=== PATIENT | male | born 1940 ===

== ENCOUNTER 2024-08-22 17:49 | Observation (INO) | payer MEDICARE ==
[2024-08-22 17:57] VITALS: TEMP 97.6
--- NOTE | 2024-08-22 18:16 | ED ---
General Adult HPI - General Chief complaint: Recheck/Abnormal Lab/Rx Stated complaint: High BP Time Seen by Provider: 08/22/24 17:59 Source: patient, family, RN notes reviewed Mode of arrival: ambulatory Limitations: no limitations - History of Present Illness Initial comments: This is an 83-year-old male with history of ND in 2016 and 2 stents presenting with children complaining of elevated blood pressure and left arm pain (6 out of 10) x 2 days. Patient states pain is constant and was worse yesterday. Patient also endorses shortness of breath, sweating, pallor. Patient states symptoms were similar when he had his previous AMI. Patient endorses use of antihypertensive medication but has been having systolic blood pressures in the 200s since yesterday when they are normally in the 120s to 130s. Patient's adult children state patient was very active yesterday and today playing with grandchildren. Patient endorses daily use of ASA 81 but otherwise denies antiplatelet or anticoagulant use. Patient denies fever, chills, dizziness, fatigue, abdominal pain, N/V/D. MD Complaint: Elevated blood pressure, left arm pain Onset/Timin -: days(s) Severity scale (1-10): 6 Consistency: constant Associated Symptoms: other (Shortness of breath, sweating, pallor) Treatments Prior to Arrival: Aspirin (ASA 81) - Related Data Home Medications Medication Instructions Recorded Confirmed Albuterol Inhaler [Ventolin Hfa 2 puff INHALATION RT-Q4H PRN 08/22/24 08/22/24 Inhaler] Aspirin EC [Ecotrin Low Dose] 81 mg PO DAILY 08/22/24 08/22/24 Carbidopa-Levodopa 25-100 mg 2 tab PO QID 08/22/24 08/22/24 [Sinemet 25-100] Cholecalciferol [Vitamin D3 (125 125 mcg PO DAILY 08/22/24 08/22/24 Mcg = 5000 Iu)] Latanoprost [Latanoprost 0.005%] 1 drop RIGHT EYE HS 08/22/24 08/22/24 Multivitamins, Thera [Multivitamin 1 tab PO DAILY 08/22/24 08/22/24 (formulary)] Nitroglycerin Sl Tabs [Nitrostat] 0.4 mg SUBLINGUAL Q5M PRN 08/22/24 08/22/24 Rosuvastatin [Crestor] 20 mg PO HS 08/22/24 08/22/24 lisinopriL [Zestril] 10 mg PO HS 08/22/24 08/22/24 Allergies Allergy/AdvReac Type Severity Reaction Status Date / Time latex AdvReac Rash/Hives Verified 08/22/24 18:28 Review of Systems ROS Statement: Those systems with pertinent positive or pertinent negative responses have been documented in the HPI. ROS Other: All systems not noted in ROS Statement are negative. Past Medical History Past Medical History: Hypertension, Myocardial Infarction ([place]) Additional Past Medical History / Comment(s): Parkinson Additional Past Surgical History / Comment(s): Hemorrhoids 1982, Vricose Veins 1983, ganglion cyst Left wrist 1984, cataract 2011, radiation seed implants 2011, cataracts 2013, heart stent implants x2 2016 Smoking Status: Never smoker Past Alcohol Use History: None Reported Past Drug Use History: None Reported General Exam - General Exam Comments Initial Comments: Patient sitting comfortably in wheelchair without signs of acute distress. Limitations: no limitations General appearance: alert, in no apparent distress Head exam: Present: atraumatic, normocephalic, normal inspection Eye exam: Present: normal appearance, PERRL, EOMI. Absent: scleral icterus, conjunctival injection, periorbital swelling ENT exam: Present: normal exam, mucous membranes moist Neck exam: Present: normal inspection. Absent: tenderness, meningismus, lymphadenopathy Respiratory exam: Present: normal lung sounds bilaterally. Absent: respiratory distress, wheezes, rales, rhonchi, stridor Cardiovascular Exam: Present: regular rate, normal rhythm, normal heart sounds. Absent: systolic murmur, diastolic murmur, rubs, gallop, clicks GI/Abdominal exam: Present: soft, normal bowel sounds. Absent: distended, tenderness, guarding, rebound, rigid Extremities exam: Present: normal inspection, full ROM, normal capillary refill. Absent: tenderness, pedal edema, joint swelling, calf tenderness Back exam: Present: normal inspection Neurological exam: Present: alert, oriented X3, CN II-XII intact Psychiatric exam: Present: normal affect, normal mood Skin exam: Present: warm, dry, intact, normal color. Absent: rash Course Vital Signs 08/22/24 08/22/24 17:50 18:39 Temperature 97.6 F Pulse Rate 88 79 Respiratory 18 20 Rate Blood Pressure 189/93 161/101 O2 Sat by Pulse 98 96 Oximetry Medical Decision Making - Medical Decision Making Was pt. sent in by a medical professional or institution ([facility], [facility], urgent care, hospital, or [facility]...) When possible be specific @ -No Did you speak to anyone other than the patient for history (EMS, parent, family, police, friend...)? What history was obtained from this source @ -No Did you review nursing and triage notes (agree or disagree)? Why? @ -I reviewed and agree with nursing and triage notes Were old charts reviewed (outside hosp., previous admission, EMS record, old EKG, old radiological studies, urgent care reports/EKG's, [facility] records)? Report findings @ -No old charts were reviewed Differential Diagnosis (chest pain, altered mental status, abdominal pain women, abdominal pain men, vaginal bleeding, weakness, fever, dyspnea, syncope, headache, dizziness, GI bleed, back pain, seizure, CVA, palpatations, mental health, musculoskeletal)? @ -Differential Chest Pain: Stable Angina, Unstable Angina, STEMI, NSTEMI Aortic Dissection, Pneumothorax, Musculoskeletal, Esophageal Spasm GERD, Cholecystitis, Pancreatitis, Zoster, this is not meant to be an all-inclusive list. EKG interpreted by me (3pts min.). @ -Sinus rhythm without ST changes or T wave inversion. Q wave noted in lead III likely indicating previous infarction. Ventricular rate 77 bpm, SUSIE 156 ms, QRS duration 90 ms, QTc 408 ms. X-rays interpreted by me (1pt min.). @ -Chest x-ray revealed no focal infiltrates, pulmonary edema or blunting of costophrenic angle. CT interpreted by me (1pt min.). @ -None done U/S interpreted by me (1pt. min.). @ -None done What testing was considered but not performed or refused? (CT, X-rays, U/S, labs)? Why? @ -None What meds were considered but not given or refused? Why? @ -Patient declined analgesic for pain control Did you discuss the management of the patient with other professionals (professionals i.e. [facility], [facility], lab, RT, psych nurse, social services designee, billiard table assembler, teacher, benefits officer, medical case worker)? Give summary @ -Contacted sound and notified them of patient history and condition. Physician agreed to patient admission into observation. Was smoking cessation discussed for >3mins.? @ -No Was critical care preformed (if so, how long)? @ -No Were there social determinants of health that impacted care today? How? (Ho melessness, low income, unemployed, alcoholism, drug addiction, transportation, low edu. Level, literacy, decrease access to med. care, long term, rehab)? @ -No Was there de-escalation of care discussed even if they declined (Discuss DNR or withdrawal of care, Hospice)? DNR status @ -No What co-morbidities impacted this encounter? (DM, HTN, Smoking, COPD, CAD, Cancer, CVA, ARF, Chemo, Hep., AIDS, mental health diagnosis, sleep apnea, morbid obesity)? @ -None Was patient admitted / discharged? Hospital course, mention meds given and route, prescriptions, significant lab abnormalities, going to OR and other pertinent info. @ -Admitted to observation. EKG showed no acute ST segment changes or T wave inversion. Q waves in lead III likely from previous ND noted. Troponin was negative. ASA 243 mg p.o. given-patient takes ASA 81 daily. Patient otherwise declined analgesics. Sounds notified of patient condition and history and will admit for further observation. Undiagnosed new problem with uncertain prognosis? @ -No Drug Therapy requiring intensive monitoring for toxicity (Heparin, Nitro, Insulin, Cardizem)? @ -No Were any procedures done? @ -No Diagnosis/symptom? @ -Stable angina Acute, or Chronic, or Acute on Chronic? @ -Acute Uncomplicated (without systemic symptoms) or Complicated (systemic symptoms)? @ -Complicated Side effects of treatment? @ -No Exacerbation, Progression, or Severe Exacerbation? @ -Exacerbation Poses a threat to life or bodily function? How? (Chest pain, USA, ND, pneumonia, PE, COPD, DKA, ARF, appy, cholecystitis, CVA, Diverticulitis, Homicidal, Suicidal, threat to staff... and all critical care pts) @ -Yes, chest pain - Lab Data Result diagrams: 08/22/24 18:33 08/22/24 18:33 Lab Results 08/22/24 08/22/24 08/22/24 Range/Units 18:33 18:33 18:33 WBC 7.3 (3.8-10.6) k/uL RBC 5.20 (4.30-5.90) m/uL Hgb 15.9 (13.0-17.5) gm/dL Hct 48.9 (39.0-53.0) % MCV 94.0 (80.0-100.0) fL MCH 30.6 (25.0-35.0) pg MCHC 32.5 (31.0-37.0) g/dL RDW 13.2 (11.5-15.5) % Plt Count 82 L (150-450) k/uL MPV 12.7 Neutrophils % 63 % Lymphocytes % 25 % Monocytes % 7 % Eosinophils % 4 % Basophils % 0 % Neutrophils # 4.6 (1.3-7.7) k/uL Lymphocytes # 1.8 (1.0-4.8) k/uL Monocytes # 0.5 (0-1.0) k/uL Eosinophils # 0.3 (0-0.7) k/uL Basophils # 0.0 (0-0.2) k/uL Manual Slide Review Performed Large Platelets Present RBC Morphology Normal PT 10.3 (10.0-12.5) sec INR 0.9 (<1.2) APTT 23.7 (22.0-30.0) sec Sodium 139 (137-145) mmol/L Potassium 3.9 (3.5-5.1) mmol/L Chloride 108 H (98-107) mmol/L Carbon Dioxide 25 (22-30) mmol/L Anion Gap 6 mmol/L BUN 14 (9-20) mg/dL Creatinine 0.71 (0.66-1.25) mg/dL Est GFR (CKD-EPI)AfAm >90 (>60 ml/min/1.73 sqM) Est GFR (CKD-EPI)NonAf 87 (>60 ml/min/1.73 sqM) Glucose 117 H (74-99) mg/dL Calcium 9.1 (8.4-10.2) mg/dL Magnesium 2.1 (1.6-2.3) mg/dL Total Bilirubin 0.9 (0.2-1.3) mg/dL AST 29 (17-59) U/L ALT 7 (4-49) U/L Alkaline Phosphatase 59 (38-126) U/L Troponin I (0.000-0.034) ng/mL Total Protein 6.7 (6.3-8.2) g/dL Albumin 4.3 (3.5-5.0) g/dL 08/22/24 Range/Units 18:33 WBC (3.8-10.6) k/uL RBC (4.30-5.90) m/uL Hgb (13.0-17.5) gm/dL Hct (39.0-53.0) % MCV (80.0-100.0) fL MCH (25.0-35.0) pg MCHC (31.0-37.0) g/dL RDW (11.5-15.5) % Plt Count (150-450) k/uL MPV Neutrophils % % Lymphocytes % % Monocytes % % Eosinophils % % Basophils % % Neutrophils # (1.3-7.7) k/uL Lymphocytes # (1.0-4.8) k/uL Monocytes # (0-1.0) k/uL Eosinophils # (0-0.7) k/uL Basophils # (0-0.2) k/uL Manual Slide Review Large Platelets RBC Morphology PT (10.0-12.5) sec INR (<1.2) APTT (22.0-30.0) sec Sodium (137-145) mmol/L Potassium (3.5-5.1) mmol/L Chloride (98-107) mmol/L Carbon Dioxide (22-30) mmol/L Anion Gap mmol/L BUN (9-20) mg/dL Creatinine (0.66-1.25) mg/dL Est GFR (CKD-EPI)AfAm (>60 ml/min/1.73 sqM) Est GFR (CKD-EPI)NonAf (>60 ml/min/1.73 sqM) Glucose (74-99) mg/dL Calcium (8.4-10.2) mg/dL Magnesium (1.6-2.3) mg/dL Total Bilirubin (0.2-1.3) mg/dL AST (17-59) U/L ALT (4-49) U/L Alkaline Phosphatase (38-126) U/L Troponin I 0.012 (0.000-0.034) ng/mL Total Protein (6.3-8.2) g/dL Albumin (3.5-5.0) g/dL Disposition Clinical Impression: Stable angina Disposition: ADMITTED IP TO THIS HOSP Condition: Good Is patient prescribed a controlled substance at d/c from ED?: No Referrals: Ijeoma Dodson MD [Primary Care Provider] - 1-2 days Time of Disposition: 19:18
--- NOTE | 2024-08-22 18:30 | XR ---
EXAMINATION TYPE: XR chest 2V DATE OF EXAM: 08/22/2024 6:24 PM COMPARISON: None CLINICAL INDICATION: Male, 83 years old with history of Chest Pain; [facility] TECHNIQUE: XR chest 2V Frontal and lateral views of the chest. FINDINGS: Lungs/Pleura: There is no evidence of pleural effusion, focal consolidation, or pneumothorax. Pulmonary vascularity: Unremarkable. Heart/mediastinum: Cardiomediastinal silhouette is unremarkable. Musculoskeletal: No acute osseous pathology. IMPRESSION: No acute cardiopulmonary disease/process. [facility], , 08/22/2024 6:28 PM
[2024-08-22] MEDS: ASPIRIN 81 MG PO STA (18:35)
[2024-08-22 18:53] LABS: ALT 7 U/L (4-49); African American GFR (CKD) >90 (>60 ml/min/1.73 sqM); Albumin 4.3 g/dL (3.5-5.0); Anion Gap 6 mmol/L; Blood Urea Nitrogen 14 mg/dL (9-20); Calcium 9.1 mg/dL (8.4-10.2); Carbon Dioxide 25 mmol/L (22-30); Chloride 108 mmol/L (98-107); Glucose 117 mg/dL (74-99); Non-African American GFR(CKD) 87 (>60 ml/min/1.73 sqM); Sodium 139 mmol/L (137-145); Total Bilirubin 0.9 mg/dL (0.2-1.3); Total Protein 6.7 g/dL (6.3-8.2)
[2024-08-22 18:55] LABS: Basophils % (A) 0 %; Eosinophils # (A) 0.3 k/uL (0-0.7); Eosinophils % (A) 4 %; HCT 48.9 % (39.0-53.0); HGB 15.9 gm/dL (13.0-17.5); INR 0.9 (<1.2); Lymphocytes # (A) 1.8 k/uL (1.0-4.8); Lymphocytes % (A) 25 %; MCH 30.6 pg (25.0-35.0); MCHC 32.5 g/dL (31.0-37.0); Mean Platelet Volume 12.7; Monocytes # (A) 0.5 k/uL (0-1.0); Monocytes % (A) 7 %; Neutrophils # (A) 4.6 k/uL (1.3-7.7); Neutrophils % (A) 63 %; Prothrombin Time 10.3 sec (10.0-12.5); RDW 13.2 % (11.5-15.5); WBC 7.3 k/uL (3.8-10.6)
[2024-08-22 18:56] LABS: Partial Thromboplastin Time 23.7 sec (22.0-30.0)
[2024-08-22 19:09] LABS: Platelet Count 82 k/uL (150-450)
[2024-08-22 19:10] LABS: AST 29 U/L (17-59); Alkaline Phosphatase 59 U/L (38-126); Magnesium 2.1 mg/dL (1.6-2.3); Potassium 3.9 mmol/L (3.5-5.1)
[2024-08-22 19:11] LABS: Large Platelets Present; RBC Morphology Normal
[2024-08-22] MEDS ORDERED: NALOXONE 0.4 MG/ML 1 ML VIAL IV PRN (19:21)
[2024-08-22] MEDS ORDERED: ALBUTEROL HFA INHALER INHALATION PRN (19:27)
[2024-08-22] MEDS ORDERED: NITROGLYCERIN SL TABS 0.4 MG TAB SUBLINGUAL PRN (19:27)
[2024-08-22] MEDS: lisinopriL 10 MG TAB PO SCH (20:40)
[2024-08-22] MEDS: LATANOPROST 0.005% OPHTH DROPS 2.5 ML BTL RIGHT EYE SCH (20:40)
[2024-08-22] MEDS: ATORVASTATIN 40 MG TAB PO SCH (20:40)
[2024-08-22] MEDS: CARBIDOPA-LEVODOPA 25-100 MG 1 EACH TAB PO SCH (22:57)
--- NOTE | 2024-08-22 23:25 | P.HPIM ---
History of Present Illness H&P Date: 08/22/24 Chief Complaint: "I had pressure in the chest and my arm. "I had pressure in the chest and my arm. The same symptoms I had when I had a heart attack." Srini is an 83 y o male patient with a history of heart attack and stenting 10 years ago. He presented with chest pressure and left arm pain. The current episode began yesterday with pain in the left forearm after cutting wood and playing with his [employer]. He had high blood pressure at home, measured at 200 systolic blood pressure. He noted feeling a bit dizzy at times but denies nausea, vomiting, heart racing, , he also experienced some slight shortness of breath with this episode. He has not taken any additional medications for his current symptoms. Lifestyle activities included running around with [employer] and yard work, which he usually does not do. No recent changes in medications or new activities apart from increased physical exertion are reported. No recent travel or hospital stay denies any history of blood clots History of myocardial infarction (heart attack) with stenting. 2. Hypertension, with a recent blood pressure reading of 200 at home. 3. Parkinson's disease. Differential diagnosis no history of asthma, diabetes, or strokes are noted. Srini lives independently and actively engages with his [employer]. He does not smoke or drink alcohol. He retired from a civil service career and describes his activity level as generally independent until the current issue ar ose. Review of systems General: No fever or chills. Pulmonary: Reports some shortness of breath. Ca rdiovascular: Pressure in the chest; no heart racing. Gastrointestinal: No nausea, vomiting, or diarrhea. Neurological: Reports occasional dizziness, no numbness or weakness reported. No issues with urinary or bowel functions noted. Vital signs: Blood pressure 176/90. Other vitals not documented. Cardiovascular examination normal with no murmurs noted. Respiratory examination clear to auscultation bilaterally. Normal strength bilaterally in upper and lower extremities. No swelling in legs, pulses intact. Neurological examination revealed intact extraocular movements and reflexes. Assessment and plan Srini presents with chest pressure and left arm pain concerning for possible cardiac event, particularly given his history. Differential diagnosis includes angina, residual effects of the previous heart attack, and potentially exacerbated heart issues due to physical exertion. Plan includes monitoring overnight with a consult from the cardiology team for possible stress testing or heart catheterization. Cardiac enzyme tests were normal. EKG shows evidence of old heart attack; no new ST changes identified. Continue with aspirin and statin Nitro sublingual as needed for chest pain Cardiology consult Cardiac monitoring Troponins are negative x 2 continue to trend Hypertension uncontrolled Continue with lisinopril home medication Continue to monitor blood pressure Start metoprolol 12.5 mg p.o. twice daily Thrombocytopenia Importance of follow-up on low platelet count, potentially rechecking with outpatient physician. Clear communication about symptom management and potential for further diagnostics in the morning. Complete blood count showed low platelet level at 80. Other blood work overall unremarkable hemoglobin 15.9 white count 7.3 Renal function unremarkable sodium 139 potassium 3.9 BUN 14 creatinine 0.7 Full code DVT prophylaxis Lovenox 40 mg subcu daily Past Medical History Past Medical History: Hypertension, Myocardial Infarction ([place]) Additional Past Medical History / Comment(s): Parkinson Additional Past Surgical History / Comment(s): Hemorrhoids 1982, Vricose Veins 1983, ganglion cyst Left wrist 1984, cataract 2011, radiation seed implants 2011, cataracts 2013, heart stent implants x2 2016 Smoking Status: Never smoker Past Alcohol Use History: None Reported Past Drug Use History: None Reported Medications and Allergies Home Medications Medication Instructions Recorded Confirmed Type Albuterol Inhaler [Ventolin Hfa 2 puff INHALATION RT-Q4H PRN 08/22/24 08/22/24 History Inhaler] Aspirin EC [Ecotrin Low Dose] 81 mg PO DAILY 08/22/24 08/22/24 History Carbidopa-Levodopa 25-100 mg 2 tab PO QID 08/22/24 08/22/24 History [Sinemet 25-100] Cholecalciferol [Vitamin D3 (125 125 mcg PO DAILY 08/22/24 08/22/24 History Mcg = 5000 Iu)] Latanoprost [Latanoprost 0.005%] 1 drop RIGHT EYE HS 08/22/24 08/22/24 History Multivitamins, Thera [Multivitamin 1 tab PO DAILY 08/22/24 08/22/24 History (formulary)] Nitroglycerin Sl Tabs [Nitrostat] 0.4 mg SUBLINGUAL Q5M PRN 08/22/24 08/22/24 History Rosuvastatin [Crestor] 20 mg PO HS 08/22/24 08/22/24 History lisinopriL [Zestril] 10 mg PO HS 08/22/24 08/22/24 History Allergies Allergy/AdvReac Type Severity Reaction Status Date / Time latex AdvReac Rash/Hives Verified 08/22/24 18:28 Physical Exam Vitals: Vital Signs Temp Pulse Resp BP Pulse Ox 08/22/24 20:49 71 18 189/101 96 08/22/24 18:39 79 20 161/101 96 08/22/24 17:50 97.6 F 88 18 189/93 98 Intake and Output 08/22/24 08/22/24 08/23/24 14:59 22:59 06:59 Other: Weight 85.275 kg Results CBC & Chem 7: 08/22/24 18:33 08/22/24 18:33 Labs: Abnormal Lab Results - Last 24 Hours (Table) 08/22/24 08/22/24 Range/Units 18:33 18:33 Plt Count 82 L (150-450) k/uL Chloride 108 H (98-107) mmol/L Glucose 117 H (74-99) mg/dL
[2024-08-23] MEDS: ENOXAPARIN 40 MG/0.4 ML SYRINGE SQ SCH (08:40)
[2024-08-23] MEDS: ISOSORBIDE MONONITRATE ER 30 MG TAB.ER.24H PO SCH (08:40)
[2024-08-23] MEDS: METOPROLOL TARTRATE 12.5 MG TAB PO SCH (08:40)
[2024-08-23] MEDS: ASPIRIN 81 MG PO SCH (08:40)
[2024-08-23] MEDS: CHOLECALCIFEROL 125 MCG (5000 IU) TABLET PO SCH (08:40)
[2024-08-23 08:44] VITALS: BP 164/90; PULSE 72; RESP 17
--- NOTE | 2024-08-23 09:30 | P.CRDCN ---
History of Present Illness Consult date: 08/23/24 Consult reason: chest pain History of present illness: This is an 83-year-old male follows with mounter smoking pipe Dr. Lainez with past medical history of coronary artery disease with 2 stents placed about 2 years ago in the setting of [place], hypertension, hyperlipidemia. We have been asked to evaluate the patient for chest pain. Patient states that his blood pressure was quite high at 224 systolic at home and his daughter brought him into the [facility] for evaluation. He also had some left-sided chest pain that involve the left arm on Friday. He then went out on Friday and was raking leaves and he did have recurrence of the chest pain while doing yard work. He states the pain was a squeezing type sensation. He states now he is feeling great. Patient given option of undergoing cardiac catheterization or following up with his primary mounter smoking pipe Dr. Lainez. Patient states that he would prefer to follow- up with his primary mounter smoking pipe. Initial blood pressure on arrival was 189/93. Blood pressure is now 164/90, heart rate is in the 60s and 70s. EKG: Sinus rhythm with no acute ST-T wave changes Chest x-ray: No acute process Laboratory studies: Troponin negative x 3, platelet count 82 Home cardiac medications: Aspirin 81 mg daily, lisinopril 10 mg at bedtime, Nitrostat, rosuvastatin 20 mg at bedtime Review Of Systems: At the time of my exam: CONSTITUTIONAL: Denies fever or chills. HEENT: Denies blurred vision, vision changes, or eye pain. Denies hemoptysis CARDIOVASCULAR: Denies chest pain. Denies orthopnea. Denies PND. Denies palpitations RESPIRATORY: Denies shortness of breath. GASTROINTESTINAL: Denies abdominal pain. Denies nausea or vomiting. HEMATOLOGIC: Denies bleeding disorders. GENITOURINARY: Denies any blood in urine. SKIN: Denies puritis. Denies rash. Physical examination: Gen: This is a 83-year-old male in no acute distress VS: reviewed HEENT: Head is atraumatic, normocephalic. Pupils equal, round. Sclerae is anicteric. NECK: Supple. No JVD. LUNGS: Clear to auscultation. No wheezes or rhonchi. No intercostal retractions. HEART: Regular rate and rhythm. No murmur. ABDOMEN: Soft No tenderness. EXTREMITIES: No pedal edema. No calf tenderness. NEUROLOGICAL: Patient is awake, alert and oriented x3. Assessment: Unstable angina Coronary artery disease with previous stenting x 2 Hypertension uncontrolled Hyperlipidemia Plan: Resume patient's home cardiac medications and we will increase lisinopril to 20 mg Start patient on Imdur 30 mg daily If patient is discharged, ensure that patient has Nitrostat at home Obtain 2-D echocardiogram and Doppler study to assess cardiac structure and function Further recommendations to follow based upon clinical course Thank you kindly for this consultation. Nurse practitioner note has been reviewed, I agree with documented findings and plan of care. Patient was seen and examined. Past Medical History Past Medical History: Hypertension, Myocardial Infarction ([place]) Additional Past Medical History / Comment(s): Parkinson Additional Past Surgical History / Comment(s): Hemorrhoids 1982, Vricose Veins 1983, ganglion cyst Left wrist 1984, cataract 2011, radiation seed implants 2011, cataracts 2013, heart stent implants x2 2015 Smoking Status: Never smoker Past Alcohol Use History: None Reported Past Drug Use History: None Reported Medications and Allergies Home Medications Medication Instructions Recorded Confirmed Type Albuterol Inhaler [Ventolin Hfa 2 puff INHALATION RT-Q4H PRN 08/22/24 08/22/24 History Inhaler] Aspirin EC [Ecotrin Low Dose] 81 mg PO DAILY 08/22/24 08/22/24 History Carbidopa-Levodopa 25-100 mg 2 tab PO QID 08/22/24 08/22/24 History [Sinemet 25-100] Cholecalciferol [Vitamin D3 (125 125 mcg PO DAILY 08/22/24 08/22/24 History Mcg = 5000 Iu)] Latanoprost [Latanoprost 0.005%] 1 drop RIGHT EYE HS 08/22/24 08/22/24 History Multivitamins, Thera [Multivitamin 1 tab PO DAILY 08/22/24 08/22/24 History (formulary)] Nitroglycerin Sl Tabs [Nitrostat] 0.4 mg SUBLINGUAL Q5M PRN 08/22/24 08/22/24 History Rosuvastatin [Crestor] 20 mg PO HS 08/22/24 08/22/24 History lisinopriL [Zestril] 10 mg PO HS 08/22/24 08/22/24 History Allergies Allergy/AdvReac Type Severity Reaction Status Date / Time latex AdvReac Rash/Hives Verified 08/22/24 18:28 Physical Exam Vitals: Vital Signs Temp Pulse Resp BP Pulse Ox 08/23/24 07:03 76 18 152/87 96 08/23/24 03:50 66 16 148/92 97 08/22/24 20:49 71 18 189/101 96 08/22/24 18:39 79 20 161/101 96 08/22/24 17:50 97.6 F 88 18 189/93 98 Intake and Output 08/22/24 08/23/24 08/23/24 22:59 06:59 14:59 Other: Weight 85.275 kg Results 08/22/24 18:33 08/22/24 18:33 Cardiac Enzymes 08/22/24 08/22/24 08/22/24 Range/Units 18:33 18:33 20:44 AST 29 (17-59) U/L Troponin I 0.012 0.014 (0.000-0.034) ng/mL 08/23/24 Range/Units 00:40 AST (17-59) U/L Troponin I <0.012 (0.000-0.034) ng/mL Coagulation 08/22/24 Range/Units 18:33 PT 10.3 (10.0-12.5) sec APTT 23.7 (22.0-30.0) sec CBC 08/22/24 Range/Units 18:33 WBC 7.3 (3.8-10.6) k/uL RBC 5.20 (4.30-5.90) m/uL Hgb 15.9 (13.0-17.5) gm/dL Hct 48.9 (39.0-53.0) % Plt Count 82 L (150-450) k/uL Comprehensive Metabolic Panel 08/22/24 Range/Units 18:33 Sodium 139 (137-145) mmol/L Potassium 3.9 (3.5-5.1) mmol/L Chloride 108 H (98-107) mmol/L Carbon Dioxide 25 (22-30) mmol/L BUN 14 (9-20) mg/dL Creatinine 0.71 (0.66-1.25) mg/dL Glucose 117 H (74-99) mg/dL Calcium 9.1 (8.4-10.2) mg/dL AST 29 (17-59) U/L ALT 7 (4-49) U/L Alkaline Phosphatase 59 (38-126) U/L Total Protein 6.7 (6.3-8.2) g/dL Albumin 4.3 (3.5-5.0) g/dL Current Medications Generic Name Dose Route Start Last Admin Trade Name Freq PRN Reason Stop Dose Admin Albuterol Sulfate 2 puff 08/22/24 19:27 Albuterol Hfa Inhaler INHALATION RT-Q4H PRN Shortness Of Breath Aspirin 81 mg 08/23/24 09:00 Aspirin 81 Mg PO DAILY SUSU Atorvastatin Calcium 40 mg 08/22/24 21:00 08/22/24 20:40 Atorvastatin 40 Mg Tab PO 40 mg HS SUSU Administration Carbidopa/Levodopa 2 each 08/22/24 22:00 08/22/24 22:57 Carbidopa-Levodopa 25-100 Mg 1 Each Tab PO 2 each QID SUSU Administration Cholecalciferol 125 mcg 08/23/24 09:00 Cholecalciferol 125 Mcg (5000 Iu) Tablet PO DAILY SUSU Enoxaparin Sodium 40 mg 08/23/24 09:00 Enoxaparin 40 Mg/0.4 Ml Syringe SQ DAILY SUSU Latanoprost 1 drops 08/22/24 21:00 08/22/24 20:40 Latanoprost 0.005% Ophth Drops 2.5 Ml Btl RIGHT EYE 1 drops HS SUSU Administration Lisinopril 10 mg 08/22/24 21:00 08/22/24 20:40 Lisinopril 10 Mg Tab PO 10 mg HS SUSU Administration Metoprolol Tartrate 12.5 mg 08/23/24 09:00 Metoprolol Tartrate 12.5 Mg Tab PO BID USSU Naloxone HCl 0.2 mg 08/22/24 19:21 Naloxone 0.4 Mg/Ml 1 Ml Vial IV Q2M PRN Opioid Reversal Nitroglycerin 0.4 mg 08/22/24 19:27 Nitroglycerin Sl Tabs 0.4 Mg Tab SUBLINGUAL Q5M PRN Chest Pain Intake and Output 08/22/24 08/23/24 08/23/24 22:59 06:59 14:59 Other: Weight 85.275 kg 08/22/24 18:33 08/22/24 18:33
--- NOTE | 2024-08-23 11:26 | P.DS ---
Providers Date of admission: 08/22/24 19:07 Expected date of discharge: 08/23/24 Attending physician: Javid Levy MD Consults: 08/22/24 19:21 Consult Physician Stat Consulting Provider: Yayo Mattson Consult Reason/Comments: Chest pain Do you want consulting provider notified?: Yes Primary care physician: [facility] Course: 83 year old M with PMH of CAD with stenting, Parkinsons, HTN, HLD presents to the ED for chest pain radiating to the left arm while cutting wood. Noted to have SBP of 200. Chest pain associated with shortness of breath and light headedness. He noted his SBP > 200 at home which prompted him to come to the ED. In the ED he underwent extensive evaluation. BP as high as 189/101. Vital signs otherwise normal. CBC, Coag panel, CMP significant for Plt 82, Cl 108, glu 117. Troponin 0.012, 0.014, < 0.012 with EKG showing sinus rhythm with no acute ST-T wave changes. Patient was admitted for Cardiology eval. Cardiology increased Li sinopril to 20 mg PO QD and started Imdur 30 mg PO QD. Echo was also ordered. 08/23 Patient was seen and examined. Chest pain completely resolved. Adamant about going home. His dock clerk is Dr. Lainez. He would like to go home and follow up with his primary dock clerk. Advised to monitor his BP multiple times a day at home and take his BP log to his [employer]ge [employer] for further titration of BP meds. Prescription for Lisinopril, Metoprolol, Imdur and Nitrostat PRN sent to pharmacy. Advised to come back to the ED for worsening chest pain, shortness of breath, lightheadedness or palpitations. Patient verbalized understanding of the plan. General: non toxic, no distress, appears at stated age Derm: warm, dry Head: atraumatic, normocephalic, symmetric Eyes: EOMI, no lid lag, anicteric sclera Mouth: no lip lesion, mucus membranes moist Cardiovascular: S1S2 reg, no murmur Lungs: Clear to auscultation bilaterally, no rhonchi, no rales , no accessory muscle use Ext: no gross muscle atrophy, no edema, no contractures Neuro: no focal neuro deficits Psych: Alert, oriented, appropriate affect Discharge Diagnosis: Chest pain Hypertensive urgency Thrombocytopenia CAD with stenting Parkinsons HTN HLD This complex discharge took 35 minutes to complete. Patient Condition at Discharge: Stable Plan - Discharge Summary New Discharge Prescriptions: No Action Rosuvastatin [Crestor] 20 mg PO HS Aspirin EC [Ecotrin Low Dose] 81 mg PO DAILY lisinopriL [Zestril] 10 mg PO HS Nitroglycerin Sl Tabs [Nitrostat] 0.4 mg SUBLINGUAL Q5M PRN PRN Reason: Chest Pain Multivitamins, Thera [Multivitamin (formulary)] 1 tab PO DAILY Cholecalciferol [Vitamin D3 (125 Mcg = 5000 Iu)] 125 mcg PO DAILY Albuterol Inhaler [Ventolin Hfa Inhaler] 2 puff INHALATION RT-Q4H PRN PRN Reason: Shortness Of Breath Latanoprost [Latanoprost 0.005%] 1 drop RIGHT EYE HS Carbidopa-Levodopa 25-100 mg [Sinemet 25-100] 2 tab PO QID Discharge Medication List Albuterol Inhaler [Ventolin Hfa Inhaler] 2 puff INHALATION RT-Q4H PRN 08/22/24 [History] Aspirin EC [Ecotrin Low Dose] 81 mg PO DAILY 08/22/24 [History] Carbidopa-Levodopa 25-100 mg [Sinemet 25-100] 2 tab PO QID 08/22/24 [History] Cholecalciferol [Vitamin D3 (125 Mcg = 5000 Iu)] 125 mcg PO DAILY 08/22/24 [History] Latanoprost [Latanoprost 0.005%] 1 drop RIGHT EYE HS 08/22/24 [History] Multivitamins, Thera [Multivitamin (formulary)] 1 tab PO DAILY 08/22/24 [History] Nitroglycerin Sl Tabs [Nitrostat] 0.4 mg SUBLINGUAL Q5M PRN 08/22/24 [History] Rosuvastatin [Crestor] 20 mg PO HS 08/22/24 [History] lisinopriL [Zestril] 10 mg PO HS 08/22/24 [History] Follow up Appointment(s)/Referral(s): Ijeoma Dodson MD [Primary Care Provider] - 1-2 days
[2024-08-23] MEDS ORDERED: lisinopriL 20 MG TAB PO SCH (21:00)
== END 2024-08-23 11:55 | disposition home or self-care (01) ==
LOC: EC 17:49 → 6NMEDSUR 19:07
PROVIDERS: ADMIT Internal Medicine; ATTEND Internal Medicine
DX: I16.0 Hypertensive urgency (principal); I10 Essential (primary) hypertension; I25.110 Atherosclerotic heart disease of native coronary artery with unstable angina pectoris; D69.6 Thrombocytopenia, unspecified; G20.A1 Parkinson's disease without dyskinesia, without mention of fluctuations; E78.5 Hyperlipidemia, unspecified; Z95.5 Presence of coronary angioplasty implant and graft; I25.2 Old myocardial infarction; Z79.82 Long term (current) use of aspirin; Z79.899 Other long term (current) drug therapy
CPT/HCPCS: 96372; 99285; 36415; 93005; 80053; 83735; 84484 ×2; 85025; 85610; 85730; 71046; G0378 ×2; J1650